=== PATIENT | male | born 1965 | race Caucasian/White ===

== ENCOUNTER 2016-07-17 09:17 | Outpatient (CLI) | payer OTHER | END 2016-07-17 09:18 | disposition home or self-care (01) | DX: G47.33 Obstructive sleep apnea (adult) (pediatric) (principal) ==

== ENCOUNTER 2017-10-09 09:50 | Outpatient (CLI) | payer OTHER | END 2017-10-09 09:51 | disposition home or self-care (01) | LOC: SC 09:50 | PROVIDERS: ATTEND Nurse Practitioner Family | DX: G47.33 Obstructive sleep apnea (adult) (pediatric) (principal) | CPT/HCPCS: 99212; 99214 ==

== ENCOUNTER 2018-12-10 10:46 | Outpatient (CLI) | payer OTHER | END 2018-12-10 10:47 | disposition home or self-care (01) | LOC: SC 10:46 | PROVIDERS: ATTEND Nurse Practitioner Family | DX: G47.33 Obstructive sleep apnea (adult) (pediatric) (principal) | CPT/HCPCS: 99212; 99214 ==

== ENCOUNTER 2020-11-04 19:37 | Emergency (ER) | payer BC, OTHER ==
--- OUTSIDE RECORDS SUMMARY | 2020-11-04 19:41 | EXTERNAL MEDICAL SUMMARY RPT | Continuity of Care Document ---
:1965 Demographics Phone Unavailable Preferred Language Vietnamese Marital Status Unknown Confucianist Affiliation Unknown Race Unknown Ethnic Group Unknown Author Organization [employer] Address [address] [phone] Phone Care Team Providers Name Role Phone Miscellaneous Unavailable Unavailable Juliocesar Unavailable Unavailable Allergies Encounters Medications date description facility 20200831 buspirone hydrochloride 10 MG Oral Tabl [facility] Problems date description facility 20200901 Encounter for screening for malignant n eoplasm of [facility] 20200830 Contact with and (suspected) exposure t o [facility] [place] [address] Procedures date description facility 20200901 [facility] 20200830 [facility] Results Vital Signs date measurement value source 20200901 weight_standard 280.27 lb 20200901 weight_metric 127.13 kg 20200901 temperature_standard 98.1 F 20200901 temperature_metric 36.72 C 20200901 respiration_rate 14 /min 20200901 height_standard 74 in 20200901 height_metric 187.96 cm 20200901 heart_rate 56 /min 20200901 BP_systolic 118 mm[Hg] 20200901 BP_diastolic 77 mm[Hg] 20200901 BMI 35.9 kg/m2
--- NOTE | 2020-11-04 19:53 | ED Physician Documentation ---
PD HPI HEENT - Stated complaint Stated Complaint: DIZZINESS - Chief complaint Chief Complaint: Neuro - History obtained from History obtained from: Patient - History of Present Illness Timing - onset: Today (onset when awoke this morning and got up from bed. Noted positional vertigo continue through the day. Mainly with tilting head back or to left. No vertigo when held still. No fumbling nor incoordination with hands/feet. No visual change. No headache nor injury. Has had some nasal congestion.) Timing - duration: Days (1) Timing - details: Abrupt onset, Intermittant Location: Other (had dental crown placed today that had been scheduled. Vertigo when lying back. Already had the vertigo prior to the dental work. No absc ess/swelling from the tooth.) Worsens: Position Associated symptoms: Congestion (environmental allergies with some congestion recently.). No: Fever, Facial swelling, Headache, Cough Similar symptoms before: Has not had sx before Recently seen: Clinic (seen by dentist today for scheduled crown of left upper incisor tooth.) Review of Systems Constitutional: denies: Fever, Chills Eyes: denies: Loss of vision, Decreased vision Ears: reports: Tinnitus/ringing (has had intermittent tinnitus left ear for years, recurrent the past week or so.) Nose: reports: Congestion. denies: Sinus pressure / pain Throat: denies: Sore throat Respiratory: denies: Cough Skin: denies: Rash, Lesions Neurologic: denies: Focal weakness, Numbness, Altered mental status, Headache PD PAST MEDICAL HISTORY - Past Medical History Cardiovascular: None Neuro: None - Present Medications Home Medications: Ambulatory Orders Medication Instructions Recorded Confirmed Cetirizine [ZyrTEC] 10 mg PO DAILY #15 tablet 11/04/20 Meclizine HCl [Motion Sickness] 25 mg PO Q6H PRN #20 tablet 11/04/20 Sertraline HCl 150 mg PO DAILY 11/04/20 11/04/20 Simvastatin [Zocor] 10 mg PO DAILY 11/04/20 11/04/20 busPIRone [Buspar] 10 mg PO DAILY 11/04/20 11/04/20 carvediloL [Coreg] 12.5 mg PO BID 11/04/20 11/04/20 dexAMETHasone [Decadron] 4 mg PO DAILY #5 tablet 11/04/20 - Allergies Allergies/Adverse Reactions: Allergies Allergy/AdvReac Type Severity Reaction Status Date / Time No Known Drug Allergies Allergy Verified 11/04/20 19:46 PD ED PE NORMAL - Vitals Vital signs reviewed: Yes - General General: Alert and oriented X 3, No acute distress, Well developed/nourished - HEENT HEENT: PERRL, EOMI (with nystagmus fast component to the left. ), Ears normal, Pharynx benign - Neck Neck: Supple, no meningeal sign, No adenopathy, No bruit - Cardiac Cardiac: RRR, No murmur - Respiratory Respiratory: Clear bilaterally - Derm Derm: Normal color, Warm and dry - Neuro Neuro: Alert and oriented X 3, sponge fisherman 2-12 intact, No motor deficit, No sensory deficit, Normal speech, Other Eye Opening: Spontaneous Motor: Obeys Commands Verbal: Oriented GCS Score: 15 Results - Vitals Vitals: Vital Signs - 24 hr 11/04/20 11/04/20 11/04/20 19:43 19:46 21:05 Temperature 36.8 C 36.8 C 36.4 C L Heart Rate 66 66 62 Respiratory 14 14 19 Rate Blood Pressure 166/98 H 166/98 H 148/90 H O2 Saturation 97 97 95 11/04/20 21:22 Temperature 36.4 C L Heart Rate 62 Respiratory 19 Rate Blood Pressure 148/90 H O2 Saturation 95 Oxygen O2 Source Room air - EKG (time done) 19:43 Rate: Rate (enter#) (59) Rhythm: NSR Rolla: Normal Intervals: Normal CA QRS: Normal Ischemia: Normal ST segments. No: ST elevation c/w ischemia, ST depression - Labs Labs: Laboratory Tests 11/04/20 19:54 Sodium 139 Potassium 3.7 Chloride 106 Carbon Dioxide 26 Anion Gap 7.0 BUN 20 Creatinine 1.2 Estimated GFR (MDRD) 64 L Glucose 101 H Calcium 9.0 Total Bilirubin 0.7 AST 17 ALT 26 Alkaline Phosphatase 70 C-Reactive Protein < 1.0 Total Protein 7.5 Albumin 4.6 Globulin 2.9 Albumin/Globulin Ratio 1.6 Lipase 32 PD MEDICAL DECISION MAKING - ED course Complexity details: considered differential (distinct positional vertigo with nystagmus and no other neuro symptoms. ), d/w patient Departure - Departure Disposition: 01 Home, Self Care Clinical Impression: Positional vertigo of left ear Condition: Stable Record reviewed to determine appropriate education?: Yes Instructions: ED Vertigo Unspecified Follow-Up: TYRESE GOMEZ PA-C [Primary Care Provider] - Prescriptions: dexAMETHasone [Decadron] 4 mg PO DAILY #5 tablet Meclizine HCl [Motion Sickness] 25 mg PO Q6H PRN #20 tablet PRN Reason: Vertigo Cetirizine [ZyrTEC] 10 mg PO DAILY #15 tablet Comments: This seems to be peripheral vertigo which is a dysfunction of the inner ear. This can be inflammatory such as from seasonal allergies or congestion. It does not sound infectious at this time. It is possible to be mechanical from a small otolith. If so that can be repositioned through mechanism or maneuver called the Romina maneuvers. I printed out a handout about that. Your sounds more likely allergy/environmental with inflammation of the inner ear. As such I would suggest using antihistamines and mild steroid anti- inflammatory over the next several days and add meclizine if needed for vertigo. Recheck if not improved completely over the next several days. Move slow and easy in the meantime. Discharge Date/Time: 11/04/20 21:22
--- OUTSIDE RECORDS SUMMARY | 2020-11-04 19:59 | EXTERNAL MEDICAL SUMMARY RPT | Continuity of Care Document ---
:1965 Demographics Phone Unavailable Preferred Language Sinhala Marital Status Unknown Latter Day Affiliation Unknown Race Unknown Ethnic Group Unknown Author Organization [employer] Address [address] [phone] Phone Care Team Providers Name Role Phone Miscellaneous Unavailable Unavailable Juliocesar Unavailable Unavailable Allergies Encounters Medications date description facility 20200831 buspirone hydrochloride 10 MG Oral Tabl [facility] Problems date description facility 20200901 Encounter for screening for malignant n eoplasm of [facility] 20200830 Contact with and (suspected) exposure t o [facility] [place] [address] Procedures date description facility 20200901 [facility] 20200830 [facility] Results Vital Signs date measurement value source 20200901 weight_standard 280.27 lb 20200901 weight_metric 127.13 kg 20200901 temperature_standard 98.1 F 20200901 temperature_metric 36.72 C 20200901 respiration_rate 14 /min 20200901 height_standard 74 in 20200901 height_metric 187.96 cm 20200901 heart_rate 56 /min 20200901 BP_systolic 118 mm[Hg] 20200901 BP_diastolic 77 mm[Hg] 20200901 BMI 35.9 kg/m2
[2020-11-04] MEDS ORDERED: DEXAMETHASONE 10 MG/ML VIAL IVP STA (20:23)
[2020-11-04] MEDS ORDERED: MECLIZINE 12.5 MG TABLET PO STA (20:23)
[2020-11-04] MEDS ORDERED: CETIRIZINE 10 MG TABLET PO STA (20:23)
[2020-11-04 20:47] LABS: ALBUMIN 4.6 g/dL (3.2-5.5); ALBUMIN/GLOBULIN RATIO 1.6 (1.0-2.2); ALKALINE PHOSPHATASE 70 IU/L (42-121); ALT ALANINE AMINOTRANSFERASE 26 IU/L (10-60); AST ASPARTATE AMINOTRANSFERASE 17 IU/L (10-42); BILIRUBIN,TOTAL 0.7 mg/dL (0.2-1.0); BUN - BLOOD UREA NITROGEN 20 mg/dL (6-20); CARBON DIOXIDE - CO2 26 mmol/L (21-32); CHLORIDE 106 mmol/L (101-111); CREATININE 1.2 mg/dL (0.6-1.2); GFR - MDRD 64 (>89); GLUCOSE 101 mg/dL (70-100); LIPASE 32 U/L (22-51); POTASSIUM 3.7 mmol/L (3.5-5.0); SODIUM 139 mmol/L (135-145); TOTAL PROTEIN 7.5 g/dL (6.7-8.2)
[2020-11-04 20:48] LABS: CRP - C-REACTIVE PROTEIN < 1.0 mg/dL (0-1.0)
[2020-11-04 21:08] VITALS: BP 148/90
== END 2020-11-04 21:22 | disposition home or self-care (01) ==
LOC: ED 19:37
DX: H81.12 Benign paroxysmal vertigo, left ear (principal); H93.12 Tinnitus, left ear; R09.81 Nasal congestion
CPT/HCPCS: 36415; 80053; 83690; 86140; 93005; 96374; 99284; A9270

== ENCOUNTER 2021-06-09 09:04 | Outpatient (CLI) | payer BC, OTHER ==
[2021-06-09 09:54] VITALS: BP 136/76
--- NOTE | 2021-06-09 09:54 | SLEEP CARE CONSULTATION ---
Information from patient questionnaire entered by Mari Crisostomo MA. I have reviewed and concur with the information entered by Mari Crisostomo MA. This document represents the service I personally performed and the decisions made by , Luisa Forrest ARNP. History of Present Illness Service Date and Time: 06/09/2021 0904 Previous diagnosis: Moderate, Obstructive Sleep Apnea-Hypopnea Syndrome AHI: 15.9 Reason for follow up: annual Equipment type: CPAP Equipment obtained from: [employer] (getting supplies as needed) Mask style: Nasal Mask brand: Respironics (Wisp) Backup mask available: Yes (old mask) Last cushion change: 2 weeks ago HPI additional information: CLARICE STARR was diagnosed to have moderate, AHI 15.9, obstructive sleep apnea-hypopnea syndrome and returned today for CPAP therapy annual follow-up. CPAP Compliance Data - Data Reviewed with Patient Average duration of nightly device use: 6 HOURS 20 MINUTES Compliance rate %: 92.2 Current pressure setting (cmH2O): 10 Humidity settin Heated hose settin Average residual AHI: 1.8 Average large leak: 0 Subjective Missed days of use due to: reports: other (recall) Patient concerns: reports: nasal congestion, other (throat irritation). denies: aerophagia, mask discomfort, air blowing in eyes, mask leak noise, condensation in mask/hose, dry mouth, nose, throat, epistaxis Observed to snore while using device: Yes (if laying on his back) Current pressure setting perceived as: comfortable On therapy, patient: reports: sleeping better, awakening more refreshed, being more awake and alert during the day, more rested overall. denies: drowsiness while driving Initial [place] Sleepiness Scale score: 12 (2014) Current [place] Sleepiness Scale score: 5 (2021) Allergies and Home Medications Home medication list reviewed: Yes Allergy and home medication list: Buspirone Carvediolol Simvastatin Sertraline Review of Systems Review of systems same as previous: Yes (no changes) Physical Exam Vital signs obtained and entered by: KATELIN MIR Blood Pressure: 136/76 (LEFT) Cuff size: wrist Heart Rate: 72 O2 Saturation: 95 (WITH PAPER MASK) Height: 6 ft 2 in Weight: 290 lb (WITH CLOTHES) Weight change since last visit: 30 pound gain Body Mass Index: 37.2 BMI Classification: Obese Impression and Plan 1. Obstructive Sleep Apnea-Hypopnea Syndrome, moderate, with good treatment compliance and good apnea control. On CPAP therapy, the patient has better sleep quality and is more rested overall. Patient comes in because he heard about the recall on his Dreamstation. Patient has already registered their device for the recall. Patient denies any black particles seen in machine or hoses, any unusual odors coming from device. If patient is not able to sleep due to waking up choking, gasping for air or other respiratory distress that they may decide to continue using it until it is either replaced or repaired. Since the patients current machine is almost 5 years old the patient is opting to update their device with a device that is not on the recall. Patient states he did try to go without his device all of his symptomology came back with frequently and being very tired during the day. Patient voiced understanding and agreement with plan. Patient's apnea severity and rationale for treatment to reduce apnea, improve sleep quality and reduce cardiovascular and cerebrovascular events was reviewed. I also reviewed the benefit of consistent device use of CPAP for depression. Patient was encouraged to lose weight for their overall health and to reduce apneas. * Change CPAP pressure to 11 cmH2O * Update CPAP device * Update supplies as needed * Notify me if snoring with mask or feeling that the pressure is too much or too little * Attempt to lose weight * Call this office if any problems using CPAP * Return for follow up one month after obtaining new device, or sooner if concerns arise Counseling Topics: Spare mask, Weight loss health impact Visit Type: In Office Time Spent with Patient (minutes): 22 Provider Statement: I spent 100% of the Face to Face Visit with the patient with greater than 50% spent counseling the patient and coordination of care.
== END 2021-06-09 09:05 | disposition home or self-care (01) ==
LOC: SC 09:04
PROVIDERS: ATTEND Nurse Practitioner Family
DX: G47.33 Obstructive sleep apnea (adult) (pediatric) (principal); E66.9 Obesity, unspecified; Z68.37 Body mass index [BMI] 37.0-37.9, adult
CPT/HCPCS: 99212; 99213

== ENCOUNTER 2022-05-29 14:02 | Emergency (ER) | payer BC, OTHER ==
[2022-05-29 14:29] VITALS: BP 147/90
--- NOTE | 2022-05-29 14:58 | XRAY Report ---
PROCEDURE: Ankle 3 View RT INDICATIONS: Trauma TECHNIQUE: 3 views of the ankle were acquired. COMPARISON: None. FINDINGS: Bones: Tiny ossicle adjacent to the tip of the fibula. No dislocation. Ankle mortise is normally alig leeann. No suspicious bony lesions. Small plantar calcaneal spur. Soft tissues: Suspect mild soft tissue swelling. No tibiotalar joint effusion. Achilles tendon appe ars normal. IMPRESSION: Tiny ossicle adjacent to the tip of the fibula. This could represent a osteophyte, sequelae of prior trauma, or avulsion fracture. Recommend correlation for point tenderness. Follow-up radiographs in 10-14 days may be helpful for further evaluation. Reviewed by: Dave Pham MD on 05/29/2022 2:57 PM PST Approved by: Dave Pham MD on 05/29/2022 2:57 PM PST Station ID: [id number]
--- NOTE | 2022-05-29 16:39 | ED Physician Documentation ---
PD HPI LOWER EXT INJURY - Stated complaint Stated Complaint: FALL/RT ANKLE SWOLLEN - Chief complaint Chief Complaint: Trauma Ext - History obtained from History obtained from: Patient - History of Present Illness PD HPI LOW EXT INJURY LOCATION: Right, Ankle Type of injury: Fall, Twist Where injury occurred: Home Timing - onset: How many days ago (2) Timing - duration: Days (2) Timing - details: Abrupt onset Pain level max: 7 Pain level now: 5 Improved by: Rest, Ice, Immobilization Worsened by: Moving, Palpating Associated symptoms: Swelling. No: Numbness, Tingling Contributing factors: No: Anticoagulated - Additional information Additional information: 56-year-old male presents to the emergency department with Right ankle pain status post a fall. Twisted on the ankle. Worse with walking, better with rest. Review of Systems Constitutional: denies: Fever Musculoskeletal: denies: Neck pain, Back pain Neurologic: denies: Headache PD PAST MEDICAL HISTORY - Past Medical History Past Medical History: Yes Cardiovascular: Hypertension, High cholesterol Neuro: None Psych: Depression, Anxiety - Past Surgical History Past Surgical History: Yes General: Appendectomy Ortho: Other - Present Medications Home Medications: Ambulatory Orders Medication Instructions Recorded Confirmed Sertraline HCl 150 mg PO DAILY 11/04/20 05/29/22 Simvastatin [Zocor] 10 mg PO DAILY 11/04/20 05/29/22 busPIRone [Buspar] 10 mg PO DAILY 11/04/20 05/29/22 carvediloL [Coreg] 12.5 mg PO BID 11/04/20 05/29/22 - Allergies Allergies/Adverse Reactions: Allergies Allergy/AdvReac Type Severity Reaction Status Date / Time No Known Drug Allergies Allergy Verified 05/29/22 14:29 - Social History Does the pt smoke?: No Smoking Status: Never smoker Does the pt drink ETOH?: No Does the pt have substance abuse?: No - Immunizations Immunizations are current?: Yes - POLST Patient has POLST: No PD ED PE NORMAL - Vitals Vital signs reviewed: Yes - General General: Alert and oriented X 3, No acute distress - Derm Derm: Warm and dry - Extremities Extremities: Other (Moderate swelling to the right ankle. Mild edema. Neurovascular intact.) - Neuro Neuro: Alert and oriented X 3 - Psych Psych: Normal mood, Normal affect Results - Vitals Vitals: Vital Signs - 24 hr 05/29/22 14:25 Temperature 36.3 C L Heart Rate 69 Respiratory 16 Rate Blood Pressure 147/90 H O2 Saturation 96 Oxygen O2 Source Room air - Rads (name of study) R ankle xray Radiology: Final report received, See rad report PD Medical Decision Making - ED course Complexity details: reviewed results, re-evaluated patient, considered differential, d/w patient ED course: Patient with a right ankle sprain. X-ray shows a possible small avulsion fracture, but patient is not point tender at this area. X-ray appears more consistent with an osteophyte/prior injury. Patient states that he has injured this ankle multiple times in the past. Placed in a gel splint for comfort. Given crutches. Will continue ice, elevation and weightbearing as tolerated. Patient counseled regarding signs and symptoms for which I believe and urgent re-evaluation would be necessary. Patient with good understanding of and agreement to plan and is comfortable going home at this time This document was made in part using voice recognition software. While efforts are made to proofread this document, sound alike and grammatical errors may occur. Departure - Departure Disposition: 01 Home, Self Care Clinical Impression: Ankle sprain Qualifiers: Encounter type: initial encounter Involved ligament of ankle: unspecified ligament Laterality: right Qualified Code(s): S93.401A - Sprain of unspecified ligament of right ankle, initial encounter Condition: Good Instructions: ED Sprain Ankle W X Ray Follow-Up: SOTERO WEEMS PA [Primary Care Provider] - Within 1 week Comments: Your x-ray does not show any acute fractures today. Please follow-up with your doctor for further care. Please return if you worsen. You may bear weight as tolerated. Elevate the leg whenever possible. If you are still having pain in 1 week, you should have repeat x-rays with your doctor. Discharge Date/Time: 05/29/22 16:50
== END 2022-05-29 16:50 | disposition home or self-care (01) ==
LOC: ED 14:02
DX: S93.401A Sprain of unspecified ligament of right ankle, initial encounter (principal); W10.9XXA Fall (on) (from) unspecified stairs and steps, initial encounter; Y93.89 Activity, other specified
CPT/HCPCS: 99282; 99283

== ENCOUNTER 2023-12-25 15:45 | Outpatient (CLI) | payer BC, OTHER ==
--- NOTE | 2023-12-25 16:29 | Sleep Patient Instructions ---
Sleep Center Visit Summary - Patient Visit Information Reason for Visit: Annual follow-up - Patient Instructions Additional Instructions: You will continue with CPAP therapy with pressure set at 11 cmH2O. A supply prescription will be updated with your DME. We encourage you to continue to try to lose weight. Please follow up with the sleep care office in 1 year. - Clinic Information Contact: [facility] [address] [place] [address] [email or web address] T: [phone]
[2023-12-25 16:36] VITALS: BP 121/78; O2SAT 99
--- NOTE | 2023-12-25 16:36 | SLEEP CARE CONSULTATION ---
Information from patient questionnaire entered by Marley Mayo. I have reviewed and concur with the information entered by Marley Mayo. This document represents the service I personally performed and the decisions made by me, Luisa Forrest ARNP. History of Present Illness Service Date and Time: 12/25/2023 1545 Previous diagnosis: Moderate, Obstructive Sleep Apnea-Hypopnea Syndrome AHI: 15.9 Reason for follow up: annual (LAST SEEN 06/2021) Equipment type: CPAP ([employer] Dreamstation 2) Equipment obtained from: Other ([employer], not getting supplies) Mask style: Nasal Mask brand: Respironics (Wisp) Backup mask available: No Last cushion change: 1 month HPI additional information: CLARICE STARR was diagnosed to have moderate, AHI 15.9, obstructive sleep apnea-hypopnea syndrome and returned today for CPAP therapy annual follow-up. CPAP Compliance Data - Data Reviewed with Patient Average duration of nightly device use: 6 HRS 13 MINS 24 SECS Compliance rate %: 87.1 (12/21/22-12/20/23; 354/365 days used) Current pressure setting (cmH2O): 11 Average residual AHI: 2.1 Central apnea: 0.1 Obstructive apnea: 0.2 Hypopnea: 1.8 Average large leak: 0 secs Subjective Missed days of use due to: reports: travel Patient concerns: denies: aerophagia, mask discomfort, air blowing in eyes, mask leak noise, condensation in mask/hose, nasal congestion, dry mouth, nose, throat, epistaxis Observed to snore while using device: Yes Current pressure setting perceived as: comfortable On therapy, patient: reports: sleeping better, awakening more refreshed, being more awake and alert during the day, more rested overall. denies: drowsiness while driving Initial [place] Sleepiness Scale score: 12 (2014) Current [facility] Sleepiness Scale score: 7 Allergies and Home Medications Known drug allergies: No Drug allergies reviewed: Yes Home medication list reviewed: Yes (Sertraline, Simvastatin, Carvedilol, Buspirone) Allergy and home medication list: Allergies No Known Drug Allergies Allergy (Verified 12/21/23 15:57) Review of Systems Review of systems same as previous: Yes (no changes) Physical Exam Vital signs obtained and entered by: LUISA GOMEZ Blood Pressure: 121/78 Cuff size: long (right arm) Heart Rate: 66 O2 Saturation: 99 Height: 6 ft 2 in Weight: 294 lb 9.6 oz Weight change since last visit: 4 lb gain in 2 yrs; has lost 20 lbs in 2 months Body Mass Index: 37.8 BMI Classification: Obese Impression and Plan 1. Obstructive Sleep Apnea-Hypopnea Syndrome, moderate, with good treatment compliance and good apnea control. On CPAP therapy, the patient has better sleep quality and is more rested overall. Patient's is sleeping in another room because she says his snoring is bad even with his CPAP. He says he wears it every night and he does wake up with a dry mouth in the morning. I suspect he is oral venting which can sound a lot like loud snoring. I advised him to try a chinstrap to keep his chin up to reduce oral venting. He has not been getting supplies for a while since he got his DreamStation 2. He was set up with oxygen for supplies in 2021. He probably needs an updated prescription for supplies which we will take care of today. He voiced understanding and agreement. Patient's apnea severity and rationale for treatment to reduce apnea, improve sleep quality and reduce cardiovascular and cerebrovascular events was reviewed. I also reviewed the benefit of consistent device use of CPAP for hypertension and depression. 2. Obesity, unspecified. Currently patients BMI is 37.8. He has been trying to lose weight and states he has lost 20 pounds in the last 2 months. He is walking a new puppy and trying to eat healthier choices. Obesity increases the risk of apnea, CPAP pressure requirements and overall health risks especially cardiovascular and diabetes. Thus patient is advised to continue to try to lose weight. * Continue CPAP pressure at 11 cmH2O * Update supply prescription * Notify me if snoring with mask or feeling that the pressure is too much or too little * Continue to try to lose weight * Call this office if any problems using CPAP * Return for follow up in 12 months, or sooner if concerns arise Continue with device pressure at (cmH2O): 11 Counseling Topics: Weight loss health impact Prescriptions: Device supplies Follow up with Sleep Care in: 1 year Visit Type: In Office Time Spent with Patient (minutes): 23 Provider Statement: I spent 100% of the Face to Face Visit with the patient with greater than 50% spent counseling the patient and coordination of care.
== END 2023-12-25 15:46 | disposition home or self-care (01) ==
LOC: SC 15:45
PROVIDERS: ATTEND Nurse Practitioner Family
DX: G47.33 Obstructive sleep apnea (adult) (pediatric) (principal); E66.9 Obesity, unspecified; Z68.37 Body mass index [BMI] 37.0-37.9, adult
CPT/HCPCS: 99212; 99213